=== PATIENT | female | born 1955 | race Caucasian/White ===

== ENCOUNTER 2019-09-28 11:18 | Inpatient (IN) | payer BC ==
[~2019-09-28] VITALS: Ht 172.7 cm; Wt 98.0 kg
[2019-09-28] MEDS ORDERED: NORVASC 5MG5 MG/TAB PO (13:02)
[2019-09-28] MEDS ORDERED: SYNTHROID0.137 MG PO (13:03)
[2019-09-28] MEDS ORDERED: EFFEXOR XR75 MG/CAP PO (13:03)
[2019-09-28] MEDS ORDERED: EFFEXOR-XR150 MG PO (13:03)
--- NOTE | 2019-09-28 15:00 | NUR ---
Admission completed, alert/oriented, vital sign stable, denies any pain or discomfort, heart RRR/distal pulses are palpable, lungs CTA/ no resp.difficulty, hemaglobin this morning in [place] was 8.5
[2019-09-28 15:25] LABS: BASO # 0.1 (0.0-0.2); EOS # 0.1 (0.0-0.7); EOS % 1.7 % (0-4.0); GRAN # 3.7 (1.4-6.5); GRAN % 63.3 % (42.2-75.2); LYMPH # 1.4 (1.2-3.4); LYMPH % 23.8 % (20.0-51.0); MEAN CELL VOLUME 85 fl (80.0-100.0); MEAN CORPUSCULAR HGB CONC 32 g/dl (33.0-37.0); MEAN PLATELET VOLUME 9.2 fl (7.4-10.4); MONO # 0.6 (0.1-0.6); MONO % 9.9 % (1.7-9.3); PLATELET COUNT 289 K/mm3 (130-400); RED BLOOD COUNT 3.12 M/mm3 (4.10-5.30); REDCELL DISTRIBUTION WIDTH-CV 15.3 % (11.5-14.5)
[2019-09-28 15:26] LABS: HEMATOCRIT 26.6 % (37.0-47.0); HEMOGLOBIN 8.5 g/dl (12.5-16.0); MEAN CORPUSCULAR HEMOGLOBIN 27 pg (27.0-31.0)
[2019-09-28 15:30] LABS: PROTHROMBIN TIME 11.6 SECONDS (9.7-12.8)
[2019-09-28 15:35] LABS: ALBUMIN 3.7 gm/dL (3.5-5.0); BILIRUBIN,TOTAL 0.2 mg/dL (0.0-1.0); CALCIUM 8.6 mg/dL (8.4-10.2); CREATININE, serum 0.56 (0.52-1.25); MAGNESIUM 2.2 mg/dL (1.6-2.3); TOTAL PROTEIN 6.5 gm/dL (6.4-8.2)
[2019-09-28 16:40] VITALS: BP 148/82; PULSE 84; TEMP 99.4
[2019-09-28 17:58] VITALS: BP 110/88; PULSE 85; TEMP 98.4
[2019-09-28 23:21] LABS: HEMATOCRIT 24.8 % (37.0-47.0)
[2019-09-29] VITALS (307 sets, daily range): BP systolic 123–131; BP diastolic 75–80; PULSE 78–84; TEMP 98.5–98.6; O2SAT 51–100
[2019-09-29 05:03] LABS: BASO # 0.1 (0.0-0.2); BASO % 1.1 % (0.0-2.0); EOS # 0.1 (0.0-0.7); EOS % 2.8 % (0-4.0); GRAN # 2.5 (1.4-6.5); GRAN % 54.4 % (42.2-75.2); LYMPH # 1.3 (1.2-3.4); LYMPH % 28.4 % (20.0-51.0); MEAN CELL VOLUME 85 fl (80.0-100.0); MEAN CORPUSCULAR HGB CONC 32 g/dl (33.0-37.0); MEAN PLATELET VOLUME 9.3 fl (7.4-10.4); MONO # 0.6 (0.1-0.6); MONO % 13.1 % (1.7-9.3); PLATELET COUNT 271 K/mm3 (130-400); RED BLOOD COUNT 2.92 M/mm3 (4.10-5.30); REDCELL DISTRIBUTION WIDTH-CV 15.2 % (11.5-14.5)
[2019-09-29 05:04] LABS: HEMATOCRIT 24.8 % (37.0-47.0); HEMOGLOBIN 7.9 g/dl (12.5-16.0); MEAN CORPUSCULAR HEMOGLOBIN 27 pg (27.0-31.0)
[2019-09-29 05:22] LABS: CALCIUM 8.6 mg/dL (8.4-10.2); CREATININE, serum 0.62 (0.52-1.25)
--- NOTE | 2019-09-29 07:36 | NUR ---
REPORT GIVEN TO ANTELMO GARRISON.
--- NOTE | 2019-09-29 08:23 | NUR ---
Pt left for EGD at this time.
--- NOTE | 2019-09-29 09:51 | NUR ---
SELWYN met with the patient to discuss discharge plan. The patient lives in [place] with her , Nicolás (ph#[phone]). She reports independence with ADLs and does not have any DME. The patient's PCP is Dr. Jake Young and she receives her medications at the [facility] in [place]. She reports no difficulties obtaining her meds. The patient does not have advanced directives in EMR, but she reports that she does have them completed and that her PCP's office should have a copy. She states that her daughter, Francesca Bhagat (ph#[phone]), is her DPOA-HC. Francesca lives in [place]. SW contacted [facility] and requested a copy. The customer service receptionist reports that they do have one on file and will fax it to the ICU unit. The patient plans to return back home with her upon discharge. No additional needs at this time.
--- NOTE | 2019-09-29 10:15 | NUR ---
Pt back in room from EGD. She is tearful, stating she is the only person her daughter has and she needs to be healthy. Pt currently denies any pain. No SOB. No N/V. POC discussed with patient who is in agreeance to have colonoscopy tomorrow, bowel prep discussed with patient. Pt pulled out IV to Lhand, catheter tip intact. Site free from complications. IVF started to RAC IV. no further needs at this time. Call light within reach. Will continue to monitor.
[2019-09-29 18:12] LABS: HEMATOCRIT 26.3 % (37.0-47.0); HEMOGLOBIN 8.4 g/dl (12.5-16.0)
--- NOTE | 2019-09-29 18:35 | NUR ---
Pt rested most of the day. No bloody stools reported. Pt denied N/V, refused any clear liquids through the day. Started on bowel prep this evening. Pt offered to facetime with, declined at this time. No needs at this time. Call light within reach.
[2019-09-30] VITALS (414 sets, daily range): BP systolic 116; BP diastolic 78; PULSE 76; O2SAT 73–100
[2019-09-30 05:15] LABS: BASO % 0.9 % (0.0-2.0); EOS # 0.2 (0.0-0.7); EOS % 3.5 % (0-4.0); GRAN # 2.1 (1.4-6.5); GRAN % 48.9 % (42.2-75.2); LYMPH # 1.4 (1.2-3.4); LYMPH % 32.3 % (20.0-51.0); MEAN CELL VOLUME 85 fl (80.0-100.0); MEAN CORPUSCULAR HGB CONC 32 g/dl (33.0-37.0); MEAN PLATELET VOLUME 9.4 fl (7.4-10.4); MONO # 0.6 (0.1-0.6); MONO % 13.9 % (1.7-9.3); PLATELET COUNT 295 K/mm3 (130-400); RED BLOOD COUNT 2.95 M/mm3 (4.10-5.30); REDCELL DISTRIBUTION WIDTH-CV 14.8 % (11.5-14.5)
[2019-09-30 05:16] LABS: HEMOGLOBIN 7.9 g/dl (12.5-16.0); MEAN CORPUSCULAR HEMOGLOBIN 27 pg (27.0-31.0)
[2019-09-30 05:26] LABS: CALCIUM 8.4 mg/dL (8.4-10.2); CREATININE, serum 0.58 (0.52-1.25); MAGNESIUM 2.1 mg/dL (1.6-2.3); POTASSIUM 3.9 mmol/L (3.4-5.0)
[2019-09-30] MEDS ORDERED: FERROUS SU325 MG/TAB PO (11:20)
--- NOTE | 2019-09-30 15:15 | NUR ---
Pt discharged to home, discussed discharge instructions with Pt, answered all questions. Escorted Pt to entrance, assisted into vehicle, Pt left with spouse via privatre transportation.
== END 2019-09-30 15:17 | disposition home or self-care (01) | DRG 378 ==
LOC: IMCU 11:18
PROVIDERS: Internal Medicine Gastroenterology; ADMIT Internal Medicine
PROC: 0DJD8ZZ Inspection of Lower Intestinal Tract, Via Natural or Artificial Opening Endoscopic (ICD-10-PCS; 2019-09-29)
PROC: 0DJ08ZZ Inspection of Upper Intestinal Tract, Via Natural or Artificial Opening Endoscopic (ICD-10-PCS; principal; 2019-09-29 08:30)
PROC: 0DJD8ZZ Inspection of Lower Intestinal Tract, Via Natural or Artificial Opening Endoscopic (ICD-10-PCS; 2019-09-30)
DX: K57.31 Diverticulosis of large intestine without perforation or abscess with bleeding (principal); D62 Acute posthemorrhagic anemia; I10 Essential (primary) hypertension; E03.9 Hypothyroidism, unspecified; K44.9 Diaphragmatic hernia without obstruction or gangrene; E66.9 Obesity, unspecified; K64.1 Second degree hemorrhoids; D72.0 Genetic anomalies of leukocytes; Q96.9 Turner's syndrome, unspecified; Z79.1 Long term (current) use of non-steroidal anti-inflammatories (NSAID); Z88.0 Allergy status to penicillin
CPT/HCPCS: 99223-AI; 99232-AI; 99239; C9113; J2704; J3010; J7030